=== PATIENT | male | born 1975 | race Hispanic/Latino ===

== ENCOUNTER 2022-11-07 09:05 | Emergency (ER) | payer SELFPAY ==
[2022-11-07] MEDS ORDERED: Ondansetron ODT 4 MG TAB ONE (09:35)
[2022-11-07 10:30] LABS: #Eosinphils 0.1 thou/uL (0.0-0.7); #Monocytes 0.6 thou/uL (0.11-0.59); #Neutrophils 8.1 thou/uL (1.40-6.50); %Basophils 0.4 % (0.0-1.0); %Lymphocytes 16.3 % (21.0-51.0); %Monocytes 5.2 % (0.0-10.0); %Neutrophils 76.8 % (42.0-75.0); Hemoglobin 15.3 g/dL (14.0-18.0); Mean Corpuscular HGB CONC 34.3 g/dL (32.0-36.0); Mean Corpuscular Hemoglobin 30.8 pg (27.0-31.0); Mean Corpuscular Volume 89.9 fl (78.0-98.0); Platelet Count 281 10x3/uL (130-400); RBC Distribution Width 12.9 % (11.5-14.5); Red Blood Cell (RBC) Count 4.96 mill/uL (4.70-6.10); White Blood Cell (WBC) Count 10.5 10x3/uL (4.8-10.8)
[2022-11-07 10:36] LABS: Bacteria/HPF None Seen HPF (None Seen); Bilirubin Negative (Negative); Blood, Urine Trace (Negative); Clarity Clear (Clear); Glucose, Urine (Dipstick) Normal (Negative); Ketone, Urine Negative (Negative); Leukocyte Negative Leu/uL (Negative); Nitrite Negative (Negative); Protein, Urine (Dipstick) Negative (Neg-Trace); RBC/HPF 0-3 HPF (0-3); Specific Gravity, Urine 1.015 (1.002-1.036); Squamous Epithelial None Seen HPF (0-3); Urobilinogen Normal mg/dL (Less than 2); WBC/HPF 0-3 HPF (0-3); pH, Urine 7.5 (5.0-9.0)
[2022-11-07] MEDS ORDERED: methylPREDNISolone Sod Succ/PF 125 MG/2 ML VIAL ONE (10:50)
[2022-11-07] MEDS ORDERED: Magnesium 2 GM/50 ML BAG (IN WATER) ONE (10:50)
[2022-11-07] MEDS ORDERED: diphenhydrAMINE 50 MG/ML VIAL ONE (10:50)
[2022-11-07] MEDS ORDERED: Metoclopramide HCl 10 MG/2 ML VIAL ONE (10:50)
[2022-11-07 10:53] LABS: ALT (SGPT) 23 U/L (8-55); AST (SGOT) 19 U/L (5-34); Albumin 4.3 g/dL (3.5-5.0); Alkaline Phosphatase 78 U/L (40-110); Anion Gap 11 mmol/L (10-20); BUN (Urea Nitrogen) 11 mg/dL (8.9-20.6); Bilirubin, Total 0.6 mg/dL (0.2-1.2); Calc. Creatinine Clearance 0 mL/min (70-130); Calcium 9.6 mg/dL (7.8-10.44); Carbon Dioxide 25 mmol/L (22-29); Chloride 105 mmol/L (98-107); Estimated GFR 108; Globulin 3.4 g/dL (2.4-3.5); Glucose 107 mg/dL (70-105); Potassium 4.1 mmol/L (3.5-5.1); Protein, Total 7.7 g/dL (6.0-8.3); Sodium 137 mmol/L (136-145)
== END 2022-11-07 14:16 | disposition home or self-care (01) ==
LOC: ERS 09:05
DX: R11.2 Nausea with vomiting, unspecified (principal); R51.9 Headache, unspecified; I10 Essential (primary) hypertension
CPT/HCPCS: 70450; 80053; 81003; 81015; 83690; 84484; 85025; 93005; 96361; 96365; 96375; J1200; J2765; J2930; J3475; Q0162